=== PATIENT | female | born 1955 | race Caucasian/White ===

== ENCOUNTER → 2016-12-06 | Outpatient (CLI) | payer OTHER ==
[~2016-12-06] MED LIST: ABILIFY15 MG PO; ALPRAZOLAM0.5 MG PO; COGENTIN 2MG TAB2 MG PO; ELIQUIS 2.5 MG2.5 MG PO; LAMICTAL150 MG PO; LORTAB 5-325 M1 EACH PO; PERCOCET 5-3251 EACH PO
== END ==
LOC: MAMO 10-03 10:20
DX: N63 Unspecified lump in breast (principal)
CPT/HCPCS: G0204

== ENCOUNTER → 2016-12-09 | Outpatient (CLI) | payer OTHER ==
[2016-12-09 10:34] LABS: HEMOGLOBIN 15.3 gm/dl (12.3-15.3); RED BLOOD COUNT 4.9 M/UL (4.00-5.10); WHITE BLOOD COUNT 14.4 K/UL (4.5-11.0)
[2016-12-09 11:02] LABS: BUN/CREATININE RATIO 9 (0-10)
== END ==
LOC: OPSV2 09:55
PROVIDERS: Orthopaedic Surgery
DX: Z01.812 Encounter for preprocedural laboratory examination (principal); Z01.810 Encounter for preprocedural cardiovascular examination; M17.12 Unilateral primary osteoarthritis, left knee; Z88.0 Allergy status to penicillin; Z88.2 Allergy status to sulfonamides
CPT/HCPCS: 36415; 80048; 81001; 85027; 87081; 93005

== ENCOUNTER → 2016-12-22 | Outpatient (CLI) | payer OTHER | LOC: LAB 11:56 | DX: Z01.818 Encounter for other preprocedural examination (principal); M19.90 Unspecified osteoarthritis, unspecified site | CPT/HCPCS: 36415; 80051; 82565; 84520; 86850; 86870; 86880; 86900; 86901; 86902; 86905; 86920; 86922 ==

== ENCOUNTER 2016-12-23 05:57 | Observation (INO) | payer OTHER ==
[~2016-12-23] VITALS: Ht 154.9 cm; Wt 66.2 kg
[~2016-12-23 05:57] MED LIST changes: -ELIQUIS 2.5 MG2.5 MG PO; -PERCOCET 5-3251 EACH PO
[2016-12-24 06:07] LABS: HEMOGLOBIN 13.6 gm/dl (12.3-15.3); RED BLOOD COUNT 4.47 M/UL (4.00-5.10)
[2016-12-24 06:15] LABS: BUN/CREATININE RATIO 10 (0-10)
[2016-12-24] MEDS ORDERED: ELIQUIS 2.5 MG2.5 MG PO (14:26)
[2016-12-24] MEDS ORDERED: PERCOCET 5-3251 EACH PO (14:54)
== END 2016-12-24 15:32 | disposition home or self-care (01) ==
LOC: OR 05:57 → EDSTATUS 08:15 → M/S 13:51 → OR 14:08 → M/S 14:08
PROVIDERS: ADMIT Orthopaedic Surgery
PROC: 0SRD0L9 Replacement of Left Knee Joint with Medial Unicondylar Synthetic Substitute, Cemented, Open Approach (ICD-10-PCS; principal; 2016-12-23 09:45)
DX: M17.12 Unilateral primary osteoarthritis, left knee (principal); F17.210 Nicotine dependence, cigarettes, uncomplicated; Z86.59 Personal history of other mental and behavioral disorders; Z90.49 Acquired absence of other specified parts of digestive tract; Z79.899 Other long term (current) drug therapy; Z88.0 Allergy status to penicillin; Z88.2 Allergy status to sulfonamides; Z88.8 Allergy status to other drugs, medicaments and biological substances; Z86.2 Personal history of diseases of the blood and blood-forming organs and certain disorders involving the immune mechanism; Z87.01 Personal history of pneumonia (recurrent); Z86.010 Personal history of colon polyps
CPT/HCPCS: 36415; 73560; 80048; 85027; 96374; 96375; 96376; 97110; 97116; C1713; G0378; J2250; J2270; J2795; J3010; J3370; J7070; J7120

== ENCOUNTER → 2020-10-03 | Outpatient (CLI) | payer MEDICARE ==
[~2020-10-03] MED LIST changes: +ELIQUIS 2.5 MG2.5 MG PO; +MECLIZINE HCL25 MG PO; +NORCO 5-325 TA1 EACH PO; +PERCOCET 5-3251 EACH PO
== END ==
LOC: KOH-I 11:01
DX: R05 Cough (principal); M25.511 Pain in right shoulder; M25.512 Pain in left shoulder; M54.2 Cervicalgia; M47.812 Spondylosis without myelopathy or radiculopathy, cervical region; M48.02 Spinal stenosis, cervical region; M48.04 Spinal stenosis, thoracic region; M47.814 Spondylosis without myelopathy or radiculopathy, thoracic region; M25.78 Osteophyte, vertebrae; M47.816 Spondylosis without myelopathy or radiculopathy, lumbar region; M48.07 Spinal stenosis, lumbosacral region; M19.011 Primary osteoarthritis, right shoulder; M19.012 Primary osteoarthritis, left shoulder
CPT/HCPCS: 71046; 72050; 72070; 72100; 73030

== ENCOUNTER 2020-11-18 11:19 | Emergency (ER) | payer MEDICARE ==
[~2020-11-18 11:19] MED LIST changes: -MECLIZINE HCL25 MG PO
[2020-11-18 12:29] LABS: HEMOGLOBIN 16.2 gm/dl (12.3-15.3); RED BLOOD COUNT 5.14 M/UL (4.00-5.10); WHITE BLOOD COUNT 12.4 K/UL (4.5-11.0)
[2020-11-18 13:04] LABS: BUN/CREATININE RATIO 11 (0-10)
[2020-11-18] MEDS ORDERED: MECLIZINE HCL25 MG PO (14:25)
== END 2020-11-18 14:55 | disposition home or self-care (01) ==
LOC: ER1 11:19
PROVIDERS: Physician Assistant
DX: R42 Dizziness and giddiness (principal); F31.9 Bipolar disorder, unspecified; F17.200 Nicotine dependence, unspecified, uncomplicated
CPT/HCPCS: 70450; 80053; 81001; 82550; 82553; 83874; 84484; 85007; 85027; 93005; 99284

== ENCOUNTER 2020-12-25 12:16 | Emergency (ER) | payer MEDICARE ==
[~2020-12-25 12:16] MED LIST changes: +MECLIZINE HCL25 MG PO
[2020-12-25 14:29] LABS: HEMOGLOBIN 14.6 gm/dl (12.3-15.3); RED BLOOD COUNT 4.73 M/UL (4.00-5.10); WHITE BLOOD COUNT 13.3 K/UL (4.5-11.0)
[2020-12-25 14:51] LABS: BUN/CREATININE RATIO 13 (0-10)
== END 2020-12-25 16:55 | disposition home or self-care (01) ==
LOC: ER1 12:16
PROVIDERS: Physician Assistant Medical
DX: R07.81 Pleurodynia (principal); F17.200 Nicotine dependence, unspecified, uncomplicated
CPT/HCPCS: 71111; 80053; 82550; 82553; 83690; 83874; 84484; 85025; 99283

== ENCOUNTER → 2021-02-07 | Outpatient (CLI) | payer MEDICARE | LOC: EMI 14:58 | DX: R42 Dizziness and giddiness (principal); R94.02 Abnormal brain scan; H53.2 Diplopia | CPT/HCPCS: 70553; A9577 ==

== ENCOUNTER → 2021-03-16 | Outpatient (CLI) | payer MEDICARE | LOC: KOH-I 10:52 | DX: J20.6 Acute bronchitis due to rhinovirus (principal) | CPT/HCPCS: 71046 ==

== ENCOUNTER 2021-08-26 13:22 | Emergency (ER) | payer MEDICARE ==
[2021-08-26 14:07] LABS: RED BLOOD COUNT 4.89 M/UL (4.00-5.10); WHITE BLOOD COUNT 12.7 K/UL (4.5-11.0)
[2021-08-26 14:39] LABS: BUN/CREATININE RATIO 12 (0-10)
== END 2021-08-26 15:12 | disposition home or self-care (01) ==
LOC: ER1 13:22
PROVIDERS: Physician Assistant
DX: R10.9 Unspecified abdominal pain (principal); R19.09 Other intra-abdominal and pelvic swelling, mass and lump; Z88.0 Allergy status to penicillin; Z88.2 Allergy status to sulfonamides; F17.200 Nicotine dependence, unspecified, uncomplicated
CPT/HCPCS: 80053; 81001; 85025; 96374; 99284; J1885

== ENCOUNTER → 2021-09-24 | Outpatient (CLI) | payer MEDICARE, OTHER | LOC: HEART 5 09-12 13:30 → EXRD 09-12 15:30 | DX: R55 Syncope and collapse (principal) | CPT/HCPCS: 93306; 93880 ==

== ENCOUNTER → 2022-04-02 | Outpatient (CLI) | payer MEDICARE | LOC: CT 15:00 | DX: R42 Dizziness and giddiness (principal) | CPT/HCPCS: 70470; Q9967 ==

== ENCOUNTER → 2022-04-23 | Outpatient (CLI) | payer OTHER | LOC: KOH-I 13:00 | DX: R10.9 Unspecified abdominal pain (principal) | CPT/HCPCS: 76775 ==